=== PATIENT | female | born 1930 | race African-American/Black ===

== ENCOUNTER 2016-12-28 18:53 | Inpatient (IN) | payer MEDICARE, OTHER ==
--- NOTE | ~2016-12-28 | HP ---
History And Physical [address] [place]. [address] NAME: VANDA ROJAS : 31 STATUS : ADM Berkley PAT#: [id number] AGE: 86 ADM/REG DATE : 12/28/16 MR#: [id number] REPORT SERV DATE: 12/29/16 DICTATED BY: DERRICK SALINAS DATE: 12/29/16 REPORT STATUS : Draft TRANSCRIBED BY: MODL DATE: 12/29/16 DATE OF ADMISSION: 12/28/2016 CAR DRIVER: Frandy Mckeon M.D. BLOCKERS SKIVER: None currently; remotely, Dr. Penn, 10 years ago. CHIEF COMPLAINT: Shortness of breath, chest pain, and elevated blood pressure. HISTORY OF PRESENT ILLNESS: This is an 86-year-old, -Tongan female with intermittent chest pain for few months. Last three days, chest pain/pressure, shortness of breath that were worsening. Also, during the event, blood pressure was markedly abnormal per patient 240/126 and 260/130 after medications per granddaughter. She reports she has a hole in her heart per Dr. Mckeon. She reports pulmonary hypertension and has fairly severe COPD with 2 L nasal cannula continuous oxygen at home and chronic shortness of breath. Last week, she did have flu-like symptoms, saw her PCP, and took Tamiflu for precaution. Currently, she continues to have shortness of breath and chest pain 7/10 on the numeric pain scale. PAST MEDICAL HISTORY: 1. Hypertension. 2. Hyperlipidemia. 3. Diabetes mellitus 2. 4. Chest pain. 5. COPD. 6. CVA. 7. Pulmonary hypertension. 8. Parkinson disease. 9. Thalassemia. 10.Right Port-A-Cath in place for thalassemia treatment. 11.Port-A-Cath, left-sided blood clot. 12.CKD stage 3. 13.Macular degeneration. 14.Frequent falls. 15.Cardiac arrest status post abdominal surgery 2011 or 2014, unsure of the dates. Unclear etiology, but no history of heart disease. 16.Glaucoma. 17.GI bleed, Dr. Keith. 18.GERD. 19.Angioedema. 20.Anemia. 21.Tissue removed from left breast. 22.Emphysema. PAST SURGICAL HISTORY: 1. Hysterectomy. History And Physical [address] [place]. [address] NAME: VANDA ROJAS : 31 STATUS : ADM Berkley PAT#: [id number] AGE: 86 ADM/REG DATE : 12/28/16 MR#: [id number] REPORT SERV DATE: 12/29/16 DICTATED BY: DERRICK SALINAS DATE: 12/29/16 REPORT STATUS : Draft TRANSCRIBED BY: JOHANNA DATE: 12/29/16 2. Colonic resection. 3. Back surgery. 4. Cataract removal. 5. Cholecystectomy, 03/2008. SOCIAL HISTORY: Lives with her son and grandson. She is . Tobacco, one pack per day x50 years, quitting 20 years ago. She denies any alcohol or illicit drug use. FAMILY HISTORY: 1. Father at the age of 97. Mother at age of 89. She did have history of HI and CVA. A sister with HI, late in 60s; another sister with HI, at age 45; another sister with HI, in late 60s; brothers x2, myocardial infarction, one in their 80s and one in their mid 60s. REVIEW OF SYSTEMS: Patient reports last stress test was four to five years ago at [place] [facility] and she believes it was fine. Last cath was many years ago at [facility] preclearance per Dr. Penn. No stents required. No reports for further details available. As above per HPI, all other systems reviewed and negative. ALLERGIES: MULTIPLE. 1. ROSUVASTATIN; REACTION, LEG CRAMPS. 2. CAREY INHIBITORS; REACTION, ANAPHYLAXIS. 3. LISINOPRIL; REACTION, ANAPHYLAXIS. 4. IODINE; REACTION, RASH. 5. ASPIRIN; REACTION, BLEEDING. 6. PREDNISONE, ELEVATED SUGAR. 7. IBUPROFEN, BLEEDING. HOME MEDICATIONS: List reviewed and is as follows: 1. Atorvastatin 10 mg p.o. at bedtime. 2. Lasix 40 mg p.o. every morning. 3. Gabapentin 100 mg p.o. twice per day as needed for neuropathy. 4. Insulin lispro, Humalog sliding scale. 5. Lantus 32 units subcu at bedtime. 6. Metoprolol tartrate 25 mg p.o. every morning. 7. Protonix 40 mg p.o. every morning. 8. Ranexa 500 mg p.o. twice per day. 9. Levothyroxine 50 mcg p.o. every morning. 10.Potassium chloride 20 mEq p.o. every morning. 11.[place] 7.5/325 mg one tablet p.o. three times per day as needed for pain. 12.Valium 10 mg p.o. twice per day as needed for anxiety and insomnia. 13.Avalide 0.5 mg p.o. every morning (irbesartan/HCTZ 150 mg/6.25 mg per dose). 14.Spiriva one cap inhaled every morning. 15.Sinemet 1.5 tablets p.o. three times per day with a 25/100 mg tablet. 16.ProAir two puffs inhaled twice per day as needed for shortness of breath. History And Physical [address] [address] NAME: VANDA ROJAS : 31 STATUS : ADM Berkley PAT#: [id number] AGE: 86 ADM/REG DATE : 12/28/16 MR#: [id number] REPORT SERV DATE: 12/29/16 DICTATED BY: DERRICK SALINAS DATE: 12/29/16 REPORT STATUS : Draft TRANSCRIBED BY: JOHANNA DATE: 12/29/16 17.Lumigan one drop ophthalmically at bedtime instilled into both eyes. 18.Klonopin 0.5 mg p.o. daily as needed for panic attacks. 19.Colace 100 mg p.o. twice per day. 20.Imdur ER 30 mg p.o. at bedtime. 21.Magnesium chloride 64 mg p.o. twice per day. 22.MiraLax 17 g p.o. twice per day. 23.Senokot two tabs p.o. daily as needed for constipation. 24.Folic acid 1 mg p.o. every morning. 25.Tylenol 1000 mg p.o. twice per day as needed for pain. 26.Albuterol one neb inhaled twice a day as needed for shortness of breath. 27.Flonase one spray daily as needed for seasonal allergies. 28.Iron infusion one dose IV every 90 days p.r.n. administered by Dr. Rodríguez. 29.Nitroglycerin 0.4 mg sublingual p.r.n. chest pain. PHYSICAL EXAMINATION: VITAL SIGNS: Oxygen saturation 98% on 2 L nasal cannula. Weight 72.3 kg; temperature 98.5; pulse 85; respiratory rate 18; blood pressure 199/84, most recent 181/72. GENERAL: Well developed, well nourished. In no apparent distress. HEENT: Head normocephalic. No xanthelasma. Sclera clear, anicteric. Moist mucous membranes without pallor. No lymphadenopathy. No deficits noted. NECK: Trachea midline. Supple. No thyromegaly, JVD, or bruits. RESPIRATORY: Diminished bilaterally to posterior auscultation. Overall clear, however, with no wheezes, rhonchi, or crackles. Unlabored respiratory rate. CARDIOVASCULAR: Regular rate and rhythm. No murmur, rub, or gallop appreciated. No chest wall tenderness to palpation. ABDOMEN: Soft, nontender, and nondistended. Active bowel sounds auscultated x4 quadrants. No organomegaly and no masses. No aortic bruit. EXTREMITIES: DP/PT and radial pulses 2+ bilaterally. No clubbing, cyanosis, or edema. SKIN: Warm, dry, intact. No rash. Normal turgor. MUSCULOSKELETAL: Moves all extremities in bed without difficulty. NEURO/PSYCH: Alert and oriented x3 with no acute distress. Affect appropriate to current situation. LABORATORY DATA: BMP: Sodium 143, potassium 3.9, creatinine 1.7, glucose 93, calcium 9.7, magnesium 2.1. CBC: White blood cell count 7.8, hemoglobin 10.6, hematocrit 33.5, platelets 335. Troponin less than 0.02 x3. D-dimer abnormal at 0.78. V/Q lung scan; more severe respiratory disease with new, significant ventilatory abnormality since June 2016. Low probability of pulmonary embolus. Chest x-ray, PA and lateral, 12/28/2016 with minimal scarring or atelectasis of left lung base and mid lung zone. There is a Port-A-Cath in the SVC. No acute processes, otherwise. History And Physical [address] [place]. [address] NAME: VANDA ROJAS : 31 STATUS : ADM Berkley PAT#: [id number] AGE: 86 ADM/REG DATE : 12/28/16 MR#: [id number] REPORT SERV DATE: 03/29/17 DICTATED BY: DERRICK SALINAS DATE: 12/29/16 REPORT STATUS : Draft TRANSCRIBED BY: MODL DATE: 12/29/16 Telemetry, sinus rhythm. ASSESSMENT AND PLAN: 1. Precordial chest pain. Troponins were negative x3 including with chest pain. EKGs with no ischemia. We will order an echocardiogram. We ordered a D-dimer and it was abnormal, therefore, a V/Q lung scan was performed. We had to do V/Q lung scan to rule out pulmonary emboli rather than a CTA given abnormal creatinine along with allergy to iodine. V/Q lung scan revealed no pulmonary emboli, but did show worsening of lung disease as previously stated. The patient ultimately will be recommended to have a vasodilator stress test. However, we would need to wait given the V/Q lung scan typically minimum of 48 hours. 2. Hypertensive urgency. Hydralazine was ordered p.r.n. We have transferred the patient to hospitalist service. 3. Dyspnea in a patient with worsening lung disease. As previously stated, V/Q scan was negative for pulmonary embolus, but worsening ventilatory defect was noted. She is on chronic 2 L nasal cannula for emphysema/chronic obstructive pulmonary disease. Oxygen saturation 96%. 4. Chronic obstructive pulmonary disease. Please see discussion above. Appreciate hospitalist. 5. Pulmonary hypertension per report. Again, we will check an echocardiogram. 6. Chronic kidney disease, stage III with a creatinine of 1.7. This appears to be at baseline. We have transferred this patient to the hospitalist service after conferral with Dr. Donna Thornton, attending physician for [facility]. Cardiology would be available via consultation if any cardiac need arose. Again, recommend vasodilator stress test when able. Again, we would anticipate this would not be for several days. Whether this would be inpatient or outpatient, I would defer to hospitalist service. ELISABETH/JOHANNA Derrick Salinas NP / [id number] CC: Gal Silveira Jr, MD Liezelle Jurgens, M.D. Suresh Enjeti, M.D. Robert McKoy, M.D.
--- NOTE | ~2016-12-28 | HP ---
History And Physical [id number] [place]. [address] NAME: VANDA ROJAS : 31 STATUS : ADM Berkley PAT#: [id number] AGE: 86 ADM/REG DATE : 12/28/16 MR#: [id number] REPORT SERV DATE: 12/29/16 DICTATED BY: CHRISTI JOSEPH DATE: 12/29/16 REPORT STATUS : Draft TRANSCRIBED BY: MODLex DATE: 12/29/16 DATE OF ADMISSION: 12/28/2016 CHIEF COMPLAINT: Multiple. HISTORY OF PRESENT ILLNESS: The patient is an 86-year-old female who was admitted with chest pain observation unit by the Cardiology Service. We were asked to take over her care after her picture was not quite consistent with simple chest pain. She presented to the hospital on 12/28/2016 complaining of intermittent chest pain for the last couple months. She describes it as pressure and also shortness of breath. Currently, she is pain-free. When she arrived, she had a pressure of 240/126. They gave her medications, her pressure has reduced now, she is in the 120 systolic and she is feeling better. She is no longer having chest pain or shortness of breath. Really is without other complaints. Does not really recall exactly why she came to the hospital. She does live with the grandson who is not present. She denies fevers. She states she has a chronic cough. She wears 2 L of O2. She smoked for 50+ years, but quit many years ago. She has had multiple admissions to the hospital service and she has a slew of medical problems, which will be referenced below. PAST MEDICAL HISTORY: 1. COPD on 2 L of O2 at all times. 2. KRYSTAL. 3. Stroke with some left-sided weakness. 4. CKD stage 3 with baseline creatinine 1.2 to 1.8. 5. GI bleed with colon polyps and AV malformations. 6. Diabetes mellitus. 7. Peripheral neuropathy. 8. Parkinson's. 9. Thalassemia with a history of blood transfusions in a chronic port in her right chest. 10.CAD, possible ASD in the past. 11.Urinary tract infections. 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 13.Left upper extremity DVT with a Port-A-Cath and a folate deficiency. PAST SURGICAL HISTORY: She has had a cholecystectomy, appendectomy, hysterectomy, and back surgery. Breast biopsy, colon and small bowel surgeries and left shoulder surgery. ALLERGIES: CRESTOR, ASPIRIN, PREDNISONE, LISINOPRIL, AND ALL CAREY INHIBITORS. SOCIAL HISTORY: She quit smoking 20 years ago. She smoked two packs per day for 50+ years. She has a total of two children. FAMILY HISTORY: Positive diabetes, strokes, and heart attacks. Her sister had lung cancer and she had another sister who at 39 of a heart attack. Her father in the age greater than 100. History And Physical [address] [address] NAME: VANDA ROJAS : 32 STATUS : ADM Berkley PAT#: [id number] AGE: 86 ADM/REG DATE : 12/28/16 MR#: [id number] REPORT SERV DATE: 12/29/16 DICTATED BY: CHRISTI JOSEPH DATE: 12/29/16 REPORT STATUS : Draft TRANSCRIBED BY: MODLex DATE: 12/29/16 HOME MEDICATIONS: Reviewed and attached. REVIEW OF SYSTEMS: Full 10-point review of systems obtained to the best of my abilities. PHYSICAL EXAMINATION: VITAL SIGNS: BP 122/71, temperature 98.3, pulse 102, respiratory rate 20, sats 99%. GENERAL: Well-developed -Irish female, pleasant, talkative. HEENT: Normocephalic, atraumatic. Throat is clear. NECK: Supple. HEART: Regular rate and rhythm. LUNGS: Grossly clear. She is somewhat diminished at the bases, but I do not appreciate any wheezing. ABDOMEN: Soft, nontender, nondistended. EXTREMITIES: Warm and dry. SKIN: Intact without rash or lesion. LABORATORY AND X-RAY: H and H 10.6 and 33, white count 7.8, platelets 335. Coags are normal. Sodium 143, potassium 3.9, chloride 105, CO2 of 28, BUN and creatinine 30 and 1.7, glucose 93. Troponin 0.02 and negative upon admission. Mag 2.1. Glucose was 104, other fingerstick blood sugars were 167 and 193. Chest x-ray is clear. EKG shows sinus rhythm with some low voltage. D-dimer was elevated at 0.78. ASSESSMENT/PLAN: 1. Chest pain, shortness of breath, now resolved. I suspect some of this is due to her hypertensive urgency. Certainly, cannot rule out pulmonary embolism, but she has had several studies to rule that out. Cardiology has ordered a V/Q scan. We will see what the results are. I think if her V/Q is negative, we may not pursue this further. I am not sure she needs stress testing. We will control her blood pressure. We will continue her on her home medications. I am going to add back her beta gatito. We will hold in the morning in case she does have stress testing tomorrow. She has gotten Avapro as well as a beta gatito, then she has gotten some p.r.n. clonidine and hydralazine. Hopefully, with control of her blood pressure, she would not have additional symptoms. She also mentioned that her Valium at night makes her symptoms better. I think some of this might be anxiety related. 2. History of chronic obstructive pulmonary disease on 2 L. She is clear on exam. Her chest x-ray is clear. I am going to place her on some scheduled DuoNebs. 3. Diabetes mellitus. We will add level 1 sliding scale insulin to her regimen. Fingerstick blood sugars before meals and at bedtime. 4. History of obstructive sleep apnea. Continue oxygen. 5. History of remote stroke. 6. Chronic kidney disease, stable on a baseline. 7. Chronic anemia with thalassemia with frequent transfusions. She seems to be doing great. Her blood count is stable. We will follow. History And Physical [address] [address] NAME: VANDA ROJAS : 31 STATUS : ADM Berkley PAT#: [id number] AGE: 86 ADM/REG DATE : 12/28/16 MR#: [id number] REPORT SERV DATE: 12/29/16 DICTATED BY: CHRISTI JOSEPH DATE: 12/29/16 REPORT STATUS : Draft TRANSCRIBED BY: MODLex DATE: 12/29/16 8. Coronary artery disease, history of stable. 9. Previous tobacco abuse. Quit smoking 20 years ago. 10.Deep venous thrombosis prophylaxis. We will add some subcu heparin. 11.Disposition. Pending above. GABRIELA/JOHANNA Christi Joseph M.D. / [id number] CC: Gal iSlveira Jr, MD Liezelle Jurgens, M.D. Robert McKoy, M.D.
--- NOTE | ~2016-12-28 | DS ---
Discharge Summary [address] [address] [place]. [address] NAME: VANDA ROJAS : 31 STATUS : DIS IN PAT#: [id number] AGE: 86 ADM/REG DATE : 12/30/16 MR#: [id number] REPORT SERV DATE: 01/01/17 DICTATED BY: JR. SILVEIRA WILLIAM JOHN DATE: 12/31/16 REPORT STATUS : Draft TRANSCRIBED BY: JOHANNA DATE: 12/31/16 ADMISSION DATE: 12/30/2016 DISCHARGE DATE: 12/31/2016 DISCHARGE DIAGNOSES: Include: 1. Noncardiac chest pain. 2. Shortness of breath. 3. Anxiety. 4. Hypertensive urgency. 5. Chronic obstructive pulmonary disease. 6. Chronic hypoxic respiratory failure, on 2 L oxygen chronically. 7. Diabetes mellitus type 2. 8. Obstructive sleep apnea. 9. Chronic kidney disease. 10.Coronary artery disease. 11.History of anemia with thalassemia. OPERATIONS, PROCEDURES, AND TREATMENTS: Include: 1. Nuclear stress test done 12/31/2016 which was an overall low risk with an ejection fraction of 60%. No ischemia demonstrated. 2. Echocardiogram done 12/30/2016 showed normal left ventricular size with preserved ejection fraction of 55% to 60%, mild diastolic dysfunction, normal right ventricular size and systolic function, aortic valve sclerosis without stenosis. 3. Chest x-ray. PA and lateral chest x-ray done 12/28/2016 showed no acute cardiopulmonary process. 4. Ventilation perfusion scan done 12/29/2016 showed more severe respiratory disease compared to prior with low probability of pulmonary embolism. DISCHARGE MEDICATIONS: Include: 1. Aspirin 325 mg orally daily. 2. Lipitor 10 mg orally daily. 3. Sinemet 25/100, 1.5 tablets 3 times a day. 4. Colace 100 mg orally twice a day. 5. Folate 1 mg orally daily. 6. Lasix 40 mg orally daily. 7. Lantus insulin 30 units at bedtime. 8. Lumigan 0.01% at bedtime in both eyes. 9. Synthroid 50 mcg orally daily. 10.Protonix 40 mg orally daily. 11.MiraLAX 17 g orally twice a day. 12.Potassium chloride 20 mEq orally daily. 13.Ranexa 500 mg orally twice a day. 14.Albuterol sulfate, nebulized twice a day. 15.Neurontin 100 mg orally three times a day as needed. 16.Sliding scale Humalog insulin. 17.Metoprolol 25 mg orally every morning. Discharge Summary [place] [address] [place]. [address] NAME: VANDA ROJAS : 31 STATUS : DIS IN PAT#: [id number] AGE: 86 ADM/REG DATE : 12/30/16 MR#: [id number] REPORT SERV DATE: 01/01/17 DICTATED BY: JR. SILVEIRA WILLIAM JOHN DATE: 12/31/16 REPORT STATUS : Draft TRANSCRIBED BY: JOHANNA DATE: 12/31/16 18.[place] 7.5/325, one tablet orally three times a day as needed. 19.Valium 10 mg orally twice a day as needed for anxiety and insomnia. 20.Avalide 300/12.5, one-half tablet daily. 21.Spiriva one capsule daily. 22.ProAir two puffs as needed. 23.Klonopin 0.5 mg as needed. 24.Imdur 30 mg orally daily. 25.Slow-Mag 64 mg twice a day. 26.Senna 2 tablets orally as needed. 27.Fluticasone nasal spray as needed. 28.Nitroglycerin 0.4 mg as needed. HOSPITAL COURSE: The patient is an 86-year-old female, presented to the emergency room with intermittent chest pain for several months. Last three days, chest pain, pressure, and shortness of breath had worsened, the patient also developed very urgent hypertension and a history of pulmonary hypertension and severe COPD. She saw her primary care physician the prior week, was started on Tamiflu as a precaution. The patient was initially admitted to the Cardiology Service. At that time, her temperature was 98.5, heart rate 85, respiratory rate 18, blood pressure 199/84. Her lung exam showed diminished breath sounds bilaterally without adventitious sounds. Heart exam was unremarkable. Laboratory was largely unremarkable except a creatinine of 1.7, which is normal for this patient. Chest x-ray as detailed above. The patient is admitted to the Cardiology Service. It was felt that this was more likely a pulmonary issue rather than heart issue, therefore, ventilation perfusion scan was done deferring on CT pulmonary angiogram due to chronic kidney disease. Ventilation perfusion scan was low risk. Unfortunately, it takes 48 hours to do a stress test after a ventilation perfusion scan. The patient's breathing stabilized. She is on 2 L oxygen by nasal cannula. Her blood pressure actually responded to antianxiety medications, and she underwent a nuclear stress test which showed low probability of occlusive cardiac disease. The patient was felt to be stable and is to be discharged home today 12/31/2016 in good condition. DIET: To be a cardiac diet. ACTIVITY: As tolerated. She will follow up with her primary care physician, Dr. Boothe. This discharge took 33 minutes for patient encounter, coordination of care, and documentation. LULI/JOHANNA Gal Silveira Jr, MD Discharge Summary [address] [address] NAME: VANDA ROJAS : 31 STATUS : DIS IN PAT#: [id number] AGE: 86 ADM/REG DATE : 12/30/16 MR#: [id number] REPORT SERV DATE: 01/01/17 DICTATED BY: JR. SILVEIRA WILLIAM JOHN DATE: 12/31/16 REPORT STATUS : Draft TRANSCRIBED BY: JOHANNA DATE: 12/31/16 / [id number] CC: Gal Silveira Jr, MD Liezelle Jurgens, M.D.
[2016-12-28 16:26] LABS: BASOPHILS 0.1 %; BASOPHILS ABSOLUTE 0.01 10/3/uL (0.0-0.16); EOSINOPHILS 0.3 %; EOSINOPHILS ABSOLUTE 0.02 10/3/uL (0.0-0.53); HEMATOCRIT 33.5 % (36.0-48.0); HEMOGLOBIN 10.6 g/dL (12.0-16.0); IMMATURE GRANULOCYTES 0.1 %; IMMATURE GRANULOCYTES ABSOLUTE 0.01 10/3/uL (0.0-0.11); LYMPHOCYTES 16.5 %; LYMPHOCYTES ABSOLUTE 1.29 10/3/uL (0.67-4.30); MEAN CORPUS HGB CONC 31.6 g/dL (32.0-36.0); MEAN CORPUSCULAR HEMOGLOB 27.2 pg (26.0-34.0); MEAN CORPUSCULAR VOLUME 86.1 fL (80-100); MEAN PLATELET VOLUME 8.5 fL (9.2-13.0); MONOCYTES 8.7 %; MONOCYTES ABSOLUTE 0.68 10/3/uL (0.21-1.20); NEUTROPHILS 74.3 %; NEUTROPHILS ABSOLUTE 5.82 10/3/uL (2.02-8.40); RBC DISTRIBUTION WIDTH 14.9 % (12.0-16.0); RED CELL COUNT 3.89 10/6/uL (4.0-5.6)
[2016-12-28 16:27] LABS: ER CBC TAT 0 Hrs 07 Mins; MANUAL DIFF NO %; PLATELET COUNT 335 10/3/uL (150-400); WHITE BLOOD CELLS 7.8 10/3/uL (4.5-10.5)
[2016-12-28 16:37] LABS: INTERNATIONAL NORMAL RATI 1.1 UNITS (-); PARTIAL THROMBO TIME 29.6 SEC (22.5-37.2); PROTIME (NOT ORD) 13.7 SEC (12.0-14.5)
[2016-12-28 16:47] LABS: BUN (BLOOD UREA NITROGEN) 30 MG/DL (6-23); CALCIUM, SERUM 9.7 MG/DL (8.5-10.4); CHEST PAIN PROFILE TAT 0 Hrs 27 Mins; CHLORIDE, SERUM 105 MMOL/L (96-112); CO2 (CARBON DIOXIDE) 28 MMOL/L (24-34); GFR AFRICAN AMERICAN 31 ML/MIN (>=60); GFR NON AFRICAN AMERICAN 27 ML/MIN (>=60); POTASSIUM, SERUM 3.9 MMOL/L (3.5-5.3); SODIUM, SERUM 143 MMOL/L (135-148); TROPONIN I <0.02 NG/ML (<0.05)
[2016-12-28 16:48] LABS: GLUCOSE, SERUM 93 MG/DL (60-99)
[~2016-12-28 18:53] MED LIST: ACET500CAP PO; APRES10B PO; APRES25 PO; ARANESP60 SC; AVALIDE1 TA1 PO; AVAP150 PO; AVAPRO75 PO; C25 PO; C5 PO; CENTRUM SILVER PO; COZAAR100 MG PO; CYANO1000T PO; DILT-XR180 MG PO; DSS PO; FOLIC PO; GENTEA1 TOP; GLUCAGON IM; GLUCOSE TAB PO; HALF81 PO; HUMALOG SC; HUMALOGPEN SC; HYDROCHLOROT12.5 MG PO; IMDUR30 PO; KLONO5 PO; KLOR-CON M2020 MEQ PO; L40 PO; LANTUS SC; LANTUSCART SC; LEVEMIR SC; LEVOTHYROXIN50 MCG PO; LIPITOR10 PO; LOP25 PO; LORT7 PO; LOVENOX SC; LOVENOX80 SC; LUMIGAN2.5 ML OPH; MAGNESIUM; MAGOX4 PO; MIRALAXPKT OR; MIRALAXPKT PO; NEBIVOLOL; NEOSPORIN TOP; NEUR100 PO; NEXIUM40 PO; NITROQUICK0.4 MG SL; NITROSTAT0.4 MG SL; NORCO1 TA2 PO; NORV10 PO; NOVOLOG SC; PLAVIX PO; PR12.5 PO; PROAIR HFA INH; PROTONIX PO; PROVENTSOL INH; RAN500 PO; REFRESH OP; REFRESH1 % OP; REFRESH1 % OPH; RX EYE DROP OP; SENTAB PO; SIN25 PO; SLOWMAG PO; SPIRIVA INH; SYMBICORT 160/41 INH INH; SYN.05 PO; SYSTAN1 OP; SYSTAN1 OPH; T PO; T300 PO; TYLENOL ARTH650 MG PO; V5 PO; VALIUM10 MG PO; ZOFRAN4 PO; [UNRECOGNIZED DRUG - OTHER] TOP
[2016-12-28] MEDS ORDERED: LIPITOR10 PO (19:14)
[2016-12-28] MEDS ORDERED: L40 PO (19:15)
[2016-12-28] MEDS ORDERED: NEUR100 PO (19:17)
[2016-12-28] MEDS ORDERED: LANTUSCART SC (19:17)
[2016-12-28] MEDS ORDERED: HUMALOGPEN SC (19:17)
[2016-12-28] MEDS ORDERED: RAN500 PO (19:19)
[2016-12-28] MEDS ORDERED: SYN.05 PO (19:19)
[2016-12-28] MEDS ORDERED: PROTONIX PO (19:19)
[2016-12-28] MEDS ORDERED: LOP25 PO (19:19)
[2016-12-28] MEDS ORDERED: NORCO1 TA2 PO (19:20)
[2016-12-28] MEDS ORDERED: KLOR-CON M2020 MEQ PO (19:20)
[2016-12-28] MEDS ORDERED: VALIUM10 MG PO (19:21)
[2016-12-28] MEDS ORDERED: SPIRIVA INH (19:23)
[2016-12-28] MEDS ORDERED: SIN25 PO (19:23)
[2016-12-28] MEDS ORDERED: AVALIDE1 TA1 PO (19:23)
[2016-12-28] MEDS ORDERED: LUMIGAN2.5 ML OPH (19:24)
[2016-12-28] MEDS ORDERED: PROAIR HFA INH (19:24)
[2016-12-28] MEDS ORDERED: DSS PO (19:26)
[2016-12-28] MEDS ORDERED: KLONO5 PO (19:26)
[2016-12-28] MEDS ORDERED: IMDUR30 PO (19:28)
[2016-12-28] MEDS ORDERED: MIRALAX POWDER1 PKT PO (19:29)
[2016-12-28] MEDS ORDERED: SLOWMAG PO (19:29)
[2016-12-28] MEDS ORDERED: SENTAB PO (19:30)
[2016-12-28] MEDS ORDERED: ACET500CAP PO (19:31)
[2016-12-28] MEDS ORDERED: FOLIC PO (19:31)
[2016-12-28] MEDS ORDERED: FLONASE NAS (19:32)
[2016-12-28] MEDS ORDERED: ALBUTEROL0.083 % INH (19:32)
[2016-12-28] MEDS ORDERED: IRON INFUSION IV (19:34)
[2016-12-28] MEDS ORDERED: NITROQUICK0.4 MG SL (19:35)
[2016-12-30 06:09] LABS: BASOPHILS 0.3 %; BASOPHILS ABSOLUTE 0.02 10/3/uL (0.0-0.16); EOSINOPHILS 1.7 %; HEMATOCRIT 31.1 % (36.0-48.0); HEMOGLOBIN 9.8 g/dL (12.0-16.0); IMMATURE GRANULOCYTES 0.2 %; IMMATURE GRANULOCYTES ABSOLUTE 0.01 10/3/uL (0.0-0.11); LYMPHOCYTES 23.3 %; LYMPHOCYTES ABSOLUTE 1.36 10/3/uL (0.67-4.30); MEAN CORPUS HGB CONC 31.5 g/dL (32.0-36.0); MEAN CORPUSCULAR HEMOGLOB 27.5 pg (26.0-34.0); MEAN CORPUSCULAR VOLUME 87.4 fL (80-100); MEAN PLATELET VOLUME 8.7 fL (9.2-13.0); MONOCYTES 12.5 %; MONOCYTES ABSOLUTE 0.73 10/3/uL (0.21-1.20); NEUTROPHILS ABSOLUTE 3.62 10/3/uL (2.02-8.40); PLATELET COUNT 316 10/3/uL (150-400); RED CELL COUNT 3.56 10/6/uL (4.0-5.6); WHITE BLOOD CELLS 5.8 10/3/uL (4.5-10.5)
[2016-12-30 06:15] LABS: MANUAL DIFF NO %
[2016-12-30 06:20] LABS: BUN (BLOOD UREA NITROGEN) 39 MG/DL (6-23); CALCIUM, SERUM 9.7 MG/DL (8.5-10.4); CHLORIDE, SERUM 106 MMOL/L (96-112); CO2 (CARBON DIOXIDE) 27 MMOL/L (24-34); CREATININE 1.64 MG/DL (0.55-1.02); GFR AFRICAN AMERICAN 33 ML/MIN (>=60); GFR NON AFRICAN AMERICAN 28 ML/MIN (>=60); GLUCOSE, SERUM 153 MG/DL (60-99); POTASSIUM, SERUM 4.3 MMOL/L (3.5-5.3); SODIUM, SERUM 139 MMOL/L (135-148)
[2017-05-11] MEDS ORDERED: IMDUR30 PO (13:59)
[2017-05-11] MEDS ORDERED: KLOR-CON M2020 MEQ PO (13:59)
[2017-05-11] MEDS ORDERED: SYMBICORT 160/41 INH INH (14:03)
[2017-05-13] MEDS ORDERED: PERCOCET 7.5/321 TAB PO (07:54)
== END 2016-12-31 15:14 | disposition home health service (06) | DRG 305 ==
LOC: ER 18:53 → CDU1 19:20 → CDU2 19:50
PROVIDERS: Emergency Medicine; Internal Medicine
DX: I16.0 Hypertensive urgency (principal); J96.11 Chronic respiratory failure with hypoxia; E11.22 Type 2 diabetes mellitus with diabetic chronic kidney disease; E11.42 Type 2 diabetes mellitus with diabetic polyneuropathy; I69.354 Hemiplegia and hemiparesis following cerebral infarction affecting left non-dominant side; G20 Parkinson's disease; D64.9 Anemia, unspecified; I27.2 Other secondary pulmonary hypertension; D56.9 Thalassemia, unspecified; J44.9 Chronic obstructive pulmonary disease, unspecified; Z99.81 Dependence on supplemental oxygen; R07.89 Other chest pain; N18.9 Chronic kidney disease, unspecified; G47.33 Obstructive sleep apnea (adult) (pediatric); N18.3 Chronic kidney disease, stage 3 (moderate); H35.30 Unspecified macular degeneration; I25.10 Atherosclerotic heart disease of native coronary artery without angina pectoris; Z87.440 Personal history of urinary (tract) infections; Z86.718 Personal history of other venous thrombosis and embolism; Z86.010 Personal history of colon polyps; Z88.8 Allergy status to other drugs, medicaments and biological substances; Z90.49 Acquired absence of other specified parts of digestive tract; Z87.891 Personal history of nicotine dependence; Z86.73 Personal history of transient ischemic attack (TIA), and cerebral infarction without residual deficits
CPT/HCPCS: 71020; 78452; 78582; 80048; 82962; 83735; 84484; 85025; 85379; 85610; 85730; 93005; 93017; 93306; 94640; 97161-GP; 99285; A9270-GY; A9502; A9540; A9567; G8978-CK-GP; G8979-CK-GP; G8980-CK-GP; J0153; J0360

== ENCOUNTER 2017-03-10 16:31 | Observation (INO) | payer MEDICARE, OTHER ==
--- NOTE | ~2017-03-10 | HP ---
History And Physical [address] [place]. [address] NAME: VANDA ROJAS : 31 STATUS : ADM Berkley PAT#: [id number] AGE: 87 ADM/REG DATE : 03/10/17 MR#: [id number] REPORT SERV DATE: 03/11/17 DICTATED BY: SHMUEL HELMS DATE: 03/10/17 REPORT STATUS : Draft TRANSCRIBED BY: MODL DATE: 03/10/17 DATE OF ADMISSION: 03/10/2017 CHIEF COMPLAINT: An 87-year-old female presenting with left lateral breast pain and mass. HISTORY OF PRESENTING ILLNESS: The patient's history was obtained through careful interview with the patient, coupled with review of [facility] medical records. Just in the last 24 hours, the patient has noticed a lump on her left breast. It is aching discomfort, throbbing quality pain, 7/10 severity. She states she also has chronic chest pain, "heaviness," discomfort like "someone is sitting inside of me," but this has been present for several months and apparently, the patient had a negative cardiac evaluation in 12/2016 under the care of Dr. Penn. She has chronic dyspnea on exertion, orthopnea, paroxysmal nocturnal dyspnea, lower extremity edema. She has had some slight chills today, but not too severe. No fevers. No nausea or vomiting. No diarrhea. She claims her diabetes is under good control. REVIEW OF SYSTEMS: Otherwise, a 14-point review of systems was obtained and was negative. PAST MEDICAL HISTORY: 1. COPD. 2. Stroke with left-sided weakness. 3. Chronic kidney disease stage 3. Baseline creatinine of about 1.5 to 1.8. 4. Diabetes. 5. 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 Olmos. 6. Parkinson's disease. 7. Elevated cholesterol. 8. Obstructive sleep apnea, but not on CPAP. Uses nasal cannula oxygen at night. 9. Thalassemia with history of blood transfusions. 10.Neuropathy. 11.Angioedema from CAREY inhibitor. 12.Left upper extremity DVT related to vascular access. 13.Folate deficiency. 14.Coronary artery disease, seen by Dr. Penn. 15.Negative echocardiogram, 12/2016. 16.Urinary tract infections. PAST SURGICAL HISTORY: 1. Appendectomy. 2. Cholecystectomy. History And Physical [address] [place]. [address] NAME: VANDA ROJAS : 31 STATUS : ADM Berkley PAT#: [id number] AGE: 87 ADM/REG DATE : 03/10/17 MR#: [id number] REPORT SERV DATE: 03/11/17 DICTATED BY: SHMUEL HELMS DATE: 03/10/17 REPORT STATUS : Draft TRANSCRIBED BY: JOHANNA DATE: 03/10/17 3. Hysterectomy. 4. Back surgery. 5. Left shoulder surgery. 6. Breast biopsy that was negative before. 7. Multiple bowel and colon surgeries possibly for ischemic colitis? ALLERGIES: CRESTOR, CAREY INHIBITOR, NONSTEROIDAL ANTI-INFLAMMATORY DRUGS, IODINE. SOCIAL HISTORY: Quit smoking 20 years ago, but was a heavy two pack per day smoker prior to that. No alcohol use. Lives with her grandson. Has two children. Retired social services manager. Has been a since 1988. Ambulates with a cane or a walker. FAMILY HISTORY: Diabetes, stroke, heart attack, sister with lung cancer, sister at 39 years of age of heart attack, father lived to over 100 years of age. CURRENT MEDICATIONS: Include Tylenol, albuterol inhaler, Lipitor 10 mg p.o. daily, eye drops, Sinemet 1.5 tablets p.o. t.i.d., Klonopin 0.5 mg p.o. daily, Valium p.r.n., Colace 100 mg p.o. b.i.d., Flonase, folic acid, Lasix 40 mg p.o. daily, Neurontin 100 mg p.o. b.i.d., hydrocodone p.r.n., Lantus 32 units subcutaneous at bedtime, sliding-scale insulin, isosorbide mononitrate 30 mg p.o. daily, levothyroxine 50 mcg p.o. daily, magnesium, Lopressor 25 mg p.o. daily, Protonix 40 mg p.o. daily, MiraLAX packet daily, potassium 20 mEq p.o. daily, Ranexa 500 mg p.o. b.i.d., senna, Spiriva inhaled daily, Avalide 300/12.5 p.o. daily. PHYSICAL EXAMINATION: VITAL SIGNS: Temperature 97.4, pulse 71, blood pressure 202/86, respiratory rate 18, O2 saturation 100% on 3 L nasal cannula. GENERAL: A pleasant, cooperative female, in no evidence of acute distress. BREASTS: The patient has symmetric-appearing breasts by overall exam. There is no nipple discharge. The left lateral aspect of the breast has red, erythematous slight area about the size of a dime that is raised and underneath this is a palpable, tender, masslike abnormality. It is difficult to determine if it is a solid mass versus a kind of a fluctuance consistent with underlying abscess? The right breast does not have a similar symmetric hardness of the breast. HEENT: Pupils equal, round, and reactive to light. No conjunctival pallor. No scleral icterus. Nares are patent. Oropharynx is clear of obstruction. Moist mucous membranes. NECK: Trachea midline. No thyromegaly. LYMPH: No cervical lymphadenopathy. No supraclavicular lymphadenopathy. No bilateral axillary lymphadenopathy. RESPIRATORY: Clear to auscultation at bases. No wheezes, rales, or rhonchi. Normal respiratory effort. CARDIOVASCULAR: Regular rate and rhythm. No murmurs, rubs, or gallops. The patient has chronic-appearing lower extremity edema around her ankles symmetrically. ABDOMEN: Soft, nontender, nondistended. Normal bowel sounds auscultated throughout. No hepatosplenomegaly. DERMATOLOGICAL: Warm and dry extremities. No pallor, no cyanosis. PSYCHIATRIC: Normal affect. Good mood. Alert and oriented x3. History And Physical [address] [address] NAME: VANDA ROJAS : 31 STATUS : ADM Berkley PAT#: [id number] AGE: 87 ADM/REG DATE : 03/10/17 MR#: [id number] REPORT SERV DATE: 03/11/17 DICTATED BY: SHMUEL HELMS DATE: 03/10/17 REPORT STATUS : Draft TRANSCRIBED BY: JOHANNA DATE: 03/10/17 LABORATORY DATA: White blood cell count 6.8, hemoglobin 8.9, hematocrit 29.7, platelets 334. Sodium 142, potassium 4.0, chloride 105, bicarb 32, BUN 30, creatinine 1.68, glucose 124, CPK 75. Troponin negative. INR 1.1. Urinalysis, negative for infection. STUDIES: 1. Chest x-ray by my own evaluation shows atelectasis changes, but no acute abnormality otherwise. 2. EKG by my own evaluation shows sinus rhythm, no major abnormalities. ASSESSMENT AND PLAN: 1. Left lateral breast mass, possible infection and abscess? Consult surgeon, Dr. Bowens. Hold antibiotics for now. By palpation, it is seems to be an abnormality that goes quite deep into the breast tissue. I will defer imaging and surgical evaluation to Dr. Bowens. 2. Chronic kidney disease stage 3. 3. Parkinson's disease. 4. Diabetes. Check hemoglobin A1c. Place on sliding scale insulin and basal insulin. 5. Thalassemia. KPL/MODL Shmuel Helms M.D. / [id number] CC: Joleen Brantley M.D.
--- NOTE | ~2017-03-10 | DS ---
Discharge Summary [facility] [address] [place]. [address] NAME: VANDA ROJAS : 32 STATUS : DIS Berkley PAT#: [id number] AGE: 87 ADM/REG DATE : 03/10/17 MR#: [id number] REPORT SERV DATE: 03/16/17 DICTATED BY: KEN SUTHERLAND DATE: 03/12/17 REPORT STATUS : Draft TRANSCRIBED BY: MODL DATE: 03/12/17 ADMISSION DATE: 03/10/2017 DISCHARGE DATE: 03/12/2017 DISCHARGE DIAGNOSES: 1. Left breast mass status post biopsy, 03/11/2017. 2. Left breast abscess ruled out. 3. Diabetes mellitus type 2. 4. Hypertension. 5. History of cerebrovascular accident. 6. History of thalassemia with blood transfusions. CONSULTATION: Surgery, Dr. Bowens. IMAGIN. Chest x-ray, 03/10/2017, impression; stable appearance of chest with no acute process demonstrated. 2. Breast ultrasound, 03/10/2017, impression; appearance of concerning large malignancy of left breast. The patient gives history of acute mass. Differential diagnosis would be mastitis potentially. 3. Breast biopsy, 03/11/2017, impression; successful guided needle biopsy with left breast lesion with placement of marker clip. LABORATORY DATA: WBC is 4.7, hemoglobin 9.0, hematocrit 30.4, and platelet count 364. Procalcitonin less than 0.05. Sodium is 140, potassium is 3.6, chloride is 103, CO2 is 34, BUN is 25, creatinine is 1.67, glucose is 84, calcium is 9.5, phosphorus is 2.8, and albumin is 3.2. COURSE IN THE HOSPITAL STAY: Please refer to history and physical dictated by Dr. Elia Rivers on 03/10/2017 as well as consultation note by Dr. Bowens on 03/12/2017. This patient is an 87-year-old female, who presented to [facility]'s Emergency Room with complaints of a possible left lateral breast pain and left breast mass with pain. The patient stated at the time of evaluation that she felt heaviness and chest pain, stated this has been ongoing for several months. Imaging which was obtained which is noted above. 1. Left breast mass, status post biopsy 03/11/2017. As noted above, the patient was admitted to the hospital. Further evaluation was obtained. Imaging, which is noted above. Surgery was consulted. The patient was evaluated by Dr. Bowens. The patient did undergo a breast biopsy which is concerning for malignancy. Dr. Bowens will follow up with the patient as an outpatient in approximately four to five days. At that time, plan of care will be discussed. 2. Possible left breast abscess as noted above. The patient was admitted with questionable abscess. Ultrasound was obtained no antibiotics were given. This was ruled out. 3. Diabetes mellitus type 2. The patient's blood sugar has remained stable during her stay. She will resume home medications upon discharge. Discharge Summary [address] [address] [place]. [address] NAME: VANDA ROJAS : 31 STATUS : DIS Berkley PAT#: [id number] AGE: 87 ADM/REG DATE : 03/10/17 MR#: [id number] REPORT SERV DATE: 03/16/17 DICTATED BY: KEN SUTHERLAND DATE: 03/12/17 REPORT STATUS : Draft TRANSCRIBED BY: JOHANNA DATE: 03/12/17 4. Hypertension. The patient's blood pressure has been monitored. Home medications will be continued upon discharge. 5. History of cerebrovascular accident. 6. History of thalassemia with blood transfusion. The patient's blood has been monitored, has remained stable. Hemoglobin upon discharge is 9.0 and hematocrit is 30.4. DISCHARGE MEDICATIONS: 1. Lipitor 10 mg one p.o. at bedtime. 2. Sinemet 25/100 mg 1.5 tablet p.o. throughout three times daily. 3. Colace 100 mg twice daily. 4. Folic acid 1 mg p.o. daily. 5. Lasix 40 mg one p.o. daily. 6. Lantus 32 units subcu at bedtime. 7. Imdur 30 mg one p.o. at bedtime. 8. Lumigan 0.01% ophthalmic drop at bedtime. 9. Levothyroxine 50 mcg tablet p.o. every morning. 10.Lopressor 25 mg p.o. every morning. 11.Protonix 40 mg one p.o. every morning. 12.MiraLAX powder 1 pack p.o. twice daily. 13.Potassium 20 mEq p.o. every morning. 14.Ranexa 500 mg p.o. twice daily. 15.Spiriva inhaler 1 capsule inhale every morning. 16.Neurontin 100 mg one p.o. twice daily. 17.Humalog 3 mL pen sliding scale. 18.Hydrocodone 7.5/325 one p.o. three times a day p.r.n. 19.Valium 10 mg, 5 mg p.o. at bedtime. 20.Avalide 300/12.5, 0.5 tablet every morning. 21.Spiriva inhaler 1 puffs inhale p.r.n. 22.Klonopin 0.5 mg p.o. p.r.n. for panic attacks. 23.Slow-Mag 64 mg p.o. twice daily. 24.Senokot tablet 2 tablets p.o. daily p.r.n. for constipation. 25.Tylenol 500 mg to 1000 mg p.o. twice daily p.r.n. for pain. 26.Albuterol inhaler 1 inhale twice daily p.r.n. for shortness of breath. 27.Flonase nasal spray 1 spray nasal p.r.n. 28.Nitroglycerin 0.4 mg sublingual p.r.n. for chest pain. This discharge took less than 30 minutes. DICTATED BY: GREGORIO Porras/JOHANNA Ken Sutherland NP Discharge Summary [address] [address] NAME: VANDA ROJAS : 31 STATUS : DIS Berkley PAT#: [id number] AGE: 87 ADM/REG DATE : 03/10/17 MR#: [id number] REPORT SERV DATE: 03/16/17 DICTATED BY: KEN SUTHERLAND DATE: 03/12/17 REPORT STATUS : Draft TRANSCRIBED BY: MODL DATE: 03/12/17 / [id number] CC: MD Cisco Hogan M.D.
--- NOTE | ~2017-03-10 | CN ---
Consultation Report [address] [place]. [address] NAME: VANDA ROJAS : 31 STATUS : ADM Berkley PAT#: [id number] AGE: 87 ADM/REG DATE : 03/10/17 MR#: [id number] REPORT SERV DATE: 03/12/17 DICTATED BY: DAYSI SUAREZ III DATE: 03/12/17 REPORT STATUS : Draft TRANSCRIBED BY: MODLex DATE: 03/12/17 CONSULT DATE OF CONSULTATION: 03/12/2017 REASON FOR CONSULT: 1. Left breast mass. 2. Recommendation regarding surgical management. HISTORY OF PRESENT ILLNESS: We are asked to see this 87-year-old female hospitalized for a left breast mass. The patient was admitted to the hospital on 03/10/2017 complaining of chest pain. She also complained of a mass in her left breast. The patient stated she noted that the mass was not present two days prior to admission. She complained of left breast pain. She had had no nipple discharge. She had no drainage. She had no fever or chills. The patient states that the pain increased. She also had chest pain. She has a history of chronic chest pain and also a history of COPD. The patient states that her last mammogram was over five years ago. An ultrasound of the left upper extremity was performed which showed evidence for left breast mass measuring 2.2 x 2.7 x 4.3 cm in size. This was a concern sonographically for malignancy. PAST MEDICAL HISTORY: 1. History of left cerebrovascular accident in the past with left-sided weakness. 2. COPD. 3. Diabetes mellitus. 4. Chronic kidney disease. 5. Parkinson disease. 6. History of GI bleed related to AVMs. 7. History of obstructive sleep apnea. 8. Thalassemia. 9. Neuropathy. 10.History of left upper extremity deep venous thrombosis. 11.Coronary artery disease. 12.History of recurrent urinary tract infections. 13.Macular degeneration. 14.Hypertension. 15.Hypercholesterolemia. 16.Arthritis. 17.Osteoporosis. Consultation Report [address] [place]. [address] NAME: VANDA ROJAS : 31 STATUS : ADM Berkley PAT#: [id number] AGE: 87 ADM/REG DATE : 03/10/17 MR#: [id number] REPORT SERV DATE: 03/12/17 DICTATED BY: ERICK REICHDAYSI CIERRA DATE: 03/12/17 REPORT STATUS : Draft TRANSCRIBED BY: MODLex DATE: 03/12/17 18.Hypothyroidism. 19.Anemia. 20.Depression. PAST SURGICAL HISTORY: Includes cholecystectomy, partial colectomy, small-bowel resection, appendectomy, back surgery, hysterectomy, left shoulder surgery, and left breast biopsy. ALLERGIES: CAREY INHIBITORS, LISINOPRIL, IODINE, CRESTOR, ASPIRIN, IBUPROFEN, AND PREDNISONE. MEDICATIONS: Tylenol, albuterol, Lipitor, Lumigan, Sinemet, Klonopin, Valium, Colace, Flonase, folic acid, Lasix, Neurontin, hydrocodone, potassium, Ranexa, Senokot, Spiriva, and Avalide. SOCIAL HISTORY: The patient lives with her grandson locally. She has a previous history of tobacco abuse. No history of alcohol or illicit drug use. FAMILY HISTORY: Positive for lung cancer, diabetes, myocardial infarction, and cerebrovascular accident. No family history for breast cancer. PHYSICAL EXAMINATION: GENERAL: This is an elderly female in no acute distress. She is alert and oriented x3. HEENT: Unremarkable. Cranial nerves 2 through 12 are normal. LUNGS: Clear. In the left breast, there is a palpable firm nonmobile mass, 2 to 3 cm in diameter. There is no nipple discharge, no nipple invasion or inversions noted. The right breast is unremarkable. No palpable masses or nodules. Both left and right axillae are normal with no adenopathy. ABDOMEN: Soft and nontender. EXTREMITIES: Unremarkable. VITAL SIGNS: The patient's blood pressure is 147/68, pulse 63, and temperature 97.8. LABORATORY DATA: Ultrasound of the left upper extremity shows an irregular hypoechoic and shadowing abnormality in the left breast with no fluid seen. The mass measures at least 2.2 x 4.3 cm in size. Extension to the skin is noted. This is a concern for malignancy. ASSESSMENT: 1. An 87-year-old female with left breast mass, clinically and sonographically of concern for probable malignancy. 2. Parkinson disease. 3. Cerebrovascular accident in the past with left-sided weakness. 4. Chronic kidney disease. 5. Diabetes mellitus. 6. Chronic obstructive pulmonary disease. 7. Gastrointestinal bleed with arteriovenous malformations. 8. Obstructive sleep apnea. 9. Thalassemia with chronic anemia. Consultation Report [facility] [address] [place]. [address] NAME: VANDA ROJAS : 31 STATUS : ADM Berkley PAT#: [id number] AGE: 87 ADM/REG DATE : 03/10/17 MR#: [id number] REPORT SERV DATE: 03/12/17 DICTATED BY: DAYSI SUAREZ III DATE: 03/12/17 REPORT STATUS : Draft TRANSCRIBED BY: JOHANNA DATE: 03/12/17 10.Neuropathy. 11.History of left lower extremity deep venous thrombosis. 12.Coronary artery disease. 13.History of chronic urinary tract infections. 14.Macular degeneration. 15.Hypertension. 16.Hypercholesterolemia. 17.Arthritis. 18.Osteoporosis. 19.Hypothyroidism. 20.Depression. PLAN: We have recommended bilateral mammogram and ultrasound of the left breast which have been performed. Pathology is pending. I suspect this is a malignant process. Further workup and treatment will depend on the results of the biopsy. We will follow the patient with you. This plan has been discussed with the patient and her family. Their questions have been answered. They understand and agree to this as planned. If the patient is felt to be stable for discharge this weekend, then we have asked the patient to call for followup appointment next week. We will review the results of the pathology with her at that time and make further plans for treatment. I feel this is probably a malignant process rather than inflammatory process or infection. This plan has been explained to the patient and her family. Their questions have been answered. They understand and agree to this as planned. CA/JOHANNA Daysi Suarez III, M.D. / [id number] CC: Joleen Brantley M.D.
[~2017-03-10 16:31] MED LIST changes: +ALBUTEROL0.083 % INH; +FLONASE NAS; +IRON INFUSION IV; +MIRALAX POWDER1 PKT PO
[2017-03-10 18:02] LABS: BASOPHILS 0.1 %; BASOPHILS ABSOLUTE 0.01 10/3/uL (0.0-0.16); EOSINOPHILS 1.5 %; ER CBC TAT 0 Hrs 05 Mins; HEMATOCRIT 29.7 % (36.0-48.0); HEMOGLOBIN 8.9 g/dL (12.0-16.0); IMMATURE GRANULOCYTES 0.1 %; IMMATURE GRANULOCYTES ABSOLUTE 0.01 10/3/uL (0.0-0.11); LYMPHOCYTES 24.5 %; LYMPHOCYTES ABSOLUTE 1.67 10/3/uL (0.67-4.30); MEAN PLATELET VOLUME 8.5 fL (9.2-13.0); MONOCYTES 9.5 %; MONOCYTES ABSOLUTE 0.65 10/3/uL (0.21-1.20); NEUTROPHILS 64.3 %; NEUTROPHILS ABSOLUTE 4.39 10/3/uL (2.02-8.40); PLATELET COUNT 334 10/3/uL (150-400); RBC DISTRIBUTION WIDTH 16.8 % (12.0-16.0); RED CELL COUNT 3.72 10/6/uL (4.0-5.6); WHITE BLOOD CELLS 6.8 10/3/uL (4.5-10.5)
[2017-03-10 18:04] LABS: MANUAL DIFF NO %; MEAN CORPUSCULAR HEMOGLOB 23.9 pg (26.0-34.0); MEAN CORPUSCULAR VOLUME 79.8 fL (80-100)
[2017-03-10 18:16] LABS: INTERNATIONAL NORMAL RATI 1.1 UNITS (-); PARTIAL THROMBO TIME 28.6 SEC (22.5-37.2); PROTIME (NOT ORD) 13.9 SEC (12.0-14.5)
[2017-03-10 18:22] LABS: BUN (BLOOD UREA NITROGEN) 30 MG/DL (6-23); CALCIUM, SERUM 9.5 MG/DL (8.5-10.4); CHEST PAIN PROFILE TAT 0 Hrs 25 Mins; CHLORIDE, SERUM 105 MMOL/L (96-112); CO2 (CARBON DIOXIDE) 32 MMOL/L (24-34); CPK 75 U/L (0-200); CREATININE 1.63 MG/DL (0.55-1.02); GFR AFRICAN AMERICAN 33 ML/MIN (>=60); GFR NON AFRICAN AMERICAN 28 ML/MIN (>=60); GLUCOSE, SERUM 124 MG/DL (60-99); SODIUM, SERUM 142 MMOL/L (135-148); TROPONIN I <0.02 NG/ML (<0.05)
[2017-03-10 18:23] LABS: CK-MB 0.6 NG/ML
[2017-03-10 19:15] LABS: ASCORBIC ACID (UR NOT ORDER) NEG (NEG); BILIRUBIN, URINE NEGATIVE (NEG); ER URINALYSIS TAT 0 Hrs 20 Mins; KETONE, URINE TRACE MG/DL (NEG); LEUKOCYTE ESTERASE(NOT OR NEG (NEG); NITRITE (URINE) NEG (NEG); WBC (NOT ORDERED) (RFLEX) 2 (0-5)
[2017-03-11 04:29] LABS: BASOPHILS 0.2 %; BASOPHILS ABSOLUTE 0.01 10/3/uL (0.0-0.16); EOSINOPHILS 2.1 %; EOSINOPHILS ABSOLUTE 0.11 10/3/uL (0.0-0.53); HEMATOCRIT 28.9 % (36.0-48.0); HEMOGLOBIN 8.7 g/dL (12.0-16.0); IMMATURE GRANULOCYTES 0.2 %; IMMATURE GRANULOCYTES ABSOLUTE 0.01 10/3/uL (0.0-0.11); LYMPHOCYTES 21.9 %; LYMPHOCYTES ABSOLUTE 1.13 10/3/uL (0.67-4.30); MEAN CORPUS HGB CONC 30.1 g/dL (32.0-36.0); MEAN CORPUSCULAR VOLUME 79.8 fL (80-100); MEAN PLATELET VOLUME 9.2 fL (9.2-13.0); MONOCYTES 12.2 %; MONOCYTES ABSOLUTE 0.63 10/3/uL (0.21-1.20); NEUTROPHILS 63.4 %; NEUTROPHILS ABSOLUTE 3.26 10/3/uL (2.02-8.40); PLATELET COUNT 327 10/3/uL (150-400); RBC DISTRIBUTION WIDTH 16.7 % (12.0-16.0); RED CELL COUNT 3.62 10/6/uL (4.0-5.6); WHITE BLOOD CELLS 5.2 10/3/uL (4.5-10.5)
[2017-03-11 04:31] LABS: MANUAL DIFF NO %
[2017-03-11 04:38] LABS: INTERNATIONAL NORMAL RATI 1.1 UNITS (-); PARTIAL THROMBO TIME 29.6 SEC (22.5-37.2); PROTIME (NOT ORD) 14.1 SEC (12.0-14.5)
[2017-03-11 04:51] LABS: A/G RATIO 0.8 (0.7-1.9); ALBUMIN 2.8 G/DL (3.5-5.0); ALKALINE PHOSPHATASE 75 U/L (45-117); BUN (BLOOD UREA NITROGEN) 27 MG/DL (6-23); C-REACTIVE PROTEIN < 2.9 MG/L (<8.0); CALCIUM, SERUM 9.1 MG/DL (8.5-10.4); CHLORIDE, SERUM 106 MMOL/L (96-112); CO2 (CARBON DIOXIDE) 29 MMOL/L (24-34); CREATININE 1.57 MG/DL (0.55-1.02); GFR AFRICAN AMERICAN 34 ML/MIN (>=60); GFR NON AFRICAN AMERICAN 30 ML/MIN (>=60); GLOBULIN 3.7 G/DL (2.5-4.1); GLUCOSE, SERUM 112 MG/DL (60-99); POTASSIUM, SERUM 3.5 MMOL/L (3.5-5.3); SGOT(AST) 18 U/L (5-40); SGPT(ALT) 9 U/L (5-65); SODIUM, SERUM 143 MMOL/L (135-148); TOTAL BILIRUBIN 0.3 MG/DL (0-1.2); TOTAL PROTEIN 6.5 G/DL (6.0-8.5)
[2017-03-11 06:33] LABS: SED RATE 63 MM/HR (0-20)
[2017-03-11 06:41] LABS: PROCALCITONIN <0.05 ng/mL (<0.5)
[2017-03-12 04:41] LABS: BASOPHILS 0.2 %; BASOPHILS ABSOLUTE 0.01 10/3/uL (0.0-0.16); EOSINOPHILS 2.8 %; EOSINOPHILS ABSOLUTE 0.13 10/3/uL (0.0-0.53); HEMATOCRIT 30.4 % (36.0-48.0); IMMATURE GRANULOCYTES 0.2 %; IMMATURE GRANULOCYTES ABSOLUTE 0.01 10/3/uL (0.0-0.11); LYMPHOCYTES 24.8 %; LYMPHOCYTES ABSOLUTE 1.17 10/3/uL (0.67-4.30); MEAN CORPUS HGB CONC 29.6 g/dL (32.0-36.0); MEAN CORPUSCULAR HEMOGLOB 23.3 pg (26.0-34.0); MEAN CORPUSCULAR VOLUME 78.8 fL (80-100); MEAN PLATELET VOLUME 8.9 fL (9.2-13.0); MONOCYTES 14.2 %; MONOCYTES ABSOLUTE 0.67 10/3/uL (0.21-1.20); NEUTROPHILS 57.8 %; NEUTROPHILS ABSOLUTE 2.73 10/3/uL (2.02-8.40); PLATELET COUNT 364 10/3/uL (150-400); RBC DISTRIBUTION WIDTH 16.9 % (12.0-16.0); RED CELL COUNT 3.86 10/6/uL (4.0-5.6); WHITE BLOOD CELLS 4.7 10/3/uL (4.5-10.5)
[2017-03-12 04:45] LABS: MANUAL DIFF NO %
[2017-03-12 04:49] LABS: ALBUMIN 3.2 G/DL (3.5-5.0); BUN (BLOOD UREA NITROGEN) 25 MG/DL (6-23); CALCIUM, SERUM 9.5 MG/DL (8.5-10.4); CHLORIDE, SERUM 103 MMOL/L (96-112); CO2 (CARBON DIOXIDE) 34 MMOL/L (24-34); CREATININE 1.67 MG/DL (0.55-1.02); GFR AFRICAN AMERICAN 32 ML/MIN (>=60); GFR NON AFRICAN AMERICAN 27 ML/MIN (>=60); GLUCOSE, SERUM 84 MG/DL (60-99); PHOSPHORUS, SERUM 2.8 MG/DL (2.5-4.5); POTASSIUM, SERUM 3.6 MMOL/L (3.5-5.3); SODIUM, SERUM 140 MMOL/L (135-148)
[2017-05-11] MEDS ORDERED: IMDUR30 PO (13:59)
[2017-05-11] MEDS ORDERED: KLOR-CON M2020 MEQ PO (13:59)
[2017-05-11] MEDS ORDERED: SYMBICORT 160/41 INH INH (14:03)
[2017-05-13] MEDS ORDERED: PERCOCET 7.5/321 TAB PO (07:54)
== END 2017-03-12 16:34 | disposition home or self-care (01) ==
LOC: ER 16:31 → CDU1 21:25
PROVIDERS: Emergency Medicine; Internal Medicine
PROC: 0HBU3ZX Excision of Left Breast, Percutaneous Approach, Diagnostic (ICD-10-PCS; principal; 2017-03-11)
DX: C50.412 Malignant neoplasm of upper-outer quadrant of left female breast (principal); J44.9 Chronic obstructive pulmonary disease, unspecified; N18.3 Chronic kidney disease, stage 3 (moderate); E11.22 Type 2 diabetes mellitus with diabetic chronic kidney disease; G20 Parkinson's disease; E78.00 Pure hypercholesterolemia, unspecified; G47.33 Obstructive sleep apnea (adult) (pediatric); E11.40 Type 2 diabetes mellitus with diabetic neuropathy, unspecified; I25.10 Atherosclerotic heart disease of native coronary artery without angina pectoris; N39.0 Urinary tract infection, site not specified; Z90.49 Acquired absence of other specified parts of digestive tract; Z90.710 Acquired absence of both cervix and uterus; Z98.890 Other specified postprocedural states
CPT/HCPCS: 71010; 76882; 80048; 80053; 80069; 81001; 82550; 82553; 82962; 83036; 83690; 83735; 84145; 84443; 84484; 85025; 85610; 85652; 85730; 86140; 88305; 88342; 88360; 88367; 93005; 96372; 96374; 99285; A4648; A9270-GY; G0378; J2405